=== PATIENT | female | born 1995 | race Caucasian/White ===

== ENCOUNTER 2017-10-21 11:33 | Emergency (ER) | payer BC ==
[~2017-10-21] VITALS: Ht 152.4 cm; Wt 50.2 kg
[2017-10-21 11:37] VITALS: TEMP 36.8; Ht 152.4 cm; Wt 50.2 kg
[2017-10-21 11:51] VITALS: O2SAT 100
[2017-10-21] MEDS ORDERED: LORAZEPAM 1 MG TAB SL STA (11:59)
[2017-10-21] MEDS ORDERED: SODIUM CHLORIDE 0.9% 1000ML 1,000 ML IV STA (11:59)
[2017-10-21] MEDS ORDERED: LEVALBUTEROL 1.25MG/3ML NEB INH STA (11:59)
[2017-10-21 12:13] LABS: BASO % 0.1 %; BASO ABS # 0.01 K/uL (0-0.2); EOS % 0.1 %; EOS ABS # 0.01 K/uL (0-0.5); HEMATOCRIT 42.1 % (37-47); HEMOGLOBIN 14.6 g/dL (12.0-16.0); IG# 0.02 K/uL (0.00-0.02); LYMPH % 19.2 %; LYMPH ABS # 2.32 K/uL (1.2-3.4); MEAN CELL VOLUME 87.2 fL (80-100); MEAN CORPUSCULAR HEMOGLOBIN 30.2 pg (25-34); MEAN CORPUSCULAR HGB CONC 34.7 g/dl (32-36); MEAN PLATELET VOLUME 9.2 fL (7.4-10.4); MONO % 5.5 %; MONO ABS # 0.67 K/uL (0.11-0.59); NEUT % 74.9 %; NEUT ABS # 9.05 K/uL (1.4-6.5); PLATELET COUNT 285 K/uL (130-400); RED CELL DISTRIBUTION WIDTH CV 12.1 % (11.5-14.5); RED CELL DISTRIBUTION WIDTH SD 38.6 fL (36.4-46.3); WHITE BLOOD COUNT 12.08 K/uL (4.8-10.8)
[2017-10-21 12:19] VITALS: PULSE 103; O2SAT 100
[2017-10-21 12:28] LABS: ALBUMIN 4.2 gm/dl (3.4-5.0); CALCIUM 9.6 mg/dl (8.5-10.1); CREATININE 0.81 mg/dl (0.60-1.20); POTASSIUM 3.5 mmol/L (3.5-5.1)
[2017-10-21 12:31] LABS: TOTAL PROTEIN 7.2 gm/dl (6.4-8.2)
--- NOTE | 2017-10-21 12:43 | DIAGNOSTIC IMAGING REPORT ---
CHEST ONE VIEW PORTABLE CLINICAL HISTORY: Pt c/o b/l wheezing dyspnea COMPARISON STUDY: 03/27/2011 FINDINGS: The bones soft tissues and hemidiaphragms are normal. The cardiomediastinal silhouette is normal. The lungs are clear. The pulmonary vasculature is normal. IMPRESSION: Negative chest. The above report was generated using voice recognition software. It may contain grammatical, syntax or spelling errors. Electronically signed by: Denny Palacios M.D. 10/21/2017 12:42 PM Dictated Date/Time: 10/21/2017 12:42 PM
--- NOTE | 2017-10-21 12:58 | DIAGNOSTIC IMAGING REPORT ---
KUB CLINICAL HISTORY: Generalized abdominal pain. FINDINGS: An AP, portable, supine abdominal radiograph is obtained. No prior studies are available for comparison at the time of dictation. There is a nonobstructed abdominal bowel gas pattern noting mild to moderate colonic fecal retention. No evidence of intraperitoneal free air is seen on this supine image. There are no abnormal abdominal calcifications. The bony structures appear intact. IMPRESSION: Nonobstructed abdominal bowel gas pattern. Electronically signed by: Luis Kumar M.D. 10/21/2017 12:57 PM Dictated Date/Time: 10/21/2017 12:56 PM
[2017-10-21 13:17] LABS: INFLUENZA B ANTIGEN Neg for Influ B (NEG)
[2017-10-21] MEDS ORDERED: ALBUTEROL 0.083% NEBU SOLN 3 ML VIAL INH STA (13:17)
[2017-10-21] MEDS ORDERED: ACETAMINOPHEN 500 MG TAB PO STA (13:17)
[2017-10-21] MEDS ORDERED: ALBUTEROL HFA 8 GM INHALER INH ONE (13:30)
[2017-10-21] MEDS ORDERED: OPTIRAY 320 IV PRN (13:45)
--- NOTE | 2017-10-21 14:17 | DIAGNOSTIC IMAGING REPORT ---
(CHEST FOR PE) ANGIO WITH CT DOSE: 159.24 mGy.cm HISTORY: Chest pain dyspnea TECHNIQUE: Multiaxial CT images of the chest were performed following the intravenous administration of contrast to evaluate the pulmonary arteries. Maximal intensity projection images were also obtained. A dose lowering technique was utilized adhering to the principles of ALARA. COMPARISON STUDY: None. FINDINGS: There is a normal caliber thoracic aorta with no evidence for dissection. There is no evidence for pulmonary embolus. No pleural effusions. No pneumothorax. The liver and spleen are unremarkable. No mediastinal or hilar lymphadenopathy. The central airways are patent. The lungs are clear. IMPRESSION: No evidence for pulmonary embolus. The lungs are clear. The above report was generated using voice recognition software. It may contain grammatical, syntax or spelling errors. Electronically signed by: Denny Palacios M.D. 10/21/2017 2:15 PM Dictated Date/Time: 10/21/2017 2:10 PM
[2017-10-21] MEDS ORDERED: DEXAMETHASONE INJ 10 MG in SYRINGE 0 ML IV STA (14:27)
[2017-10-21] MEDS ORDERED: PROCHLORPERAZINE 5 MG/ML 2 ML VIAL IV STA (14:27)
[2017-10-21] MEDS ORDERED: MAGNESIUM CITRATE 296 ML/BTL PO STA (14:27)
[2017-10-21] MEDS ORDERED: KETOROLAC TROMETHAMINE 30 MG/ML VIAL IV STA (14:27)
[2017-10-21] MEDS ORDERED: DiphenhydrAMINE HCL 50 MG/ML VIAL IV STA (14:27)
[2017-10-21] MEDS ORDERED: MAGNESIUM SULFATE 1GM / D5W 1 GM BAG IV STA (14:27)
[2017-10-21] MEDS ORDERED: CEFTRIAXONE SOD INJ 1 GM ADDVIAL IV STA (14:40)
[2017-10-21] MEDS ORDERED: DEXAMETHASONE **PF** INJ 10 MG/ML VIAL ONE (14:40)
[2017-10-21] MEDS ORDERED: BCPILLS PO (15:22)
[2017-10-21] MEDS ORDERED: CEPH500C2 PO (16:11)
--- NOTE | 2017-10-21 16:30 | EMERGENCY ROOM VISIT NOTE ---
History Report prepared by Freddy: Nery Acosta Under the Supervision of: Dr. Justin Rivera M.D. 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 The patient has been feeling sick with a sore throat since yesterday afternoon. This morning she had a fever. She started having trouble breathing on the way in. She has never experienced this before. She reports numbness in her hands and toes. She is having a headache in the front and intermittent abdominal pain. She has not had a bowel movement since yesterday which is normal for her. She notes that she has not been eating as much as normal. She denies any chest pain, nausea, vomiting, or diarrhea. She denies any drug or alcohol use. She is on control. Source of History: patient Onset: PYROMETER TEMPERATURE REGULATOR Position: other (breathing) Quality: other (difficulty) Timing: other (persistent) Associated Symptoms: + fevers, + headache, + sorethroat, + abdominal pain, + numbness, No chest pain, No nausea, No vomiting, No diarrhea Review of Systems See HPI for pertinent positives & negatives. A total of 10 systems reviewed and were otherwise negative. Past Medical & Surgical Medical Problems: (1) No chronic problems Family History No pertinent family history stated. Social History Smoking Status: Never Smoker Occupation Status: student Current/Historical Medications Scheduled Control Pills ( Control Pills), 1 TAB PO DAILY Cephalexin Monohydrate (Keflex), 500 MG PO TID Allergies Coded Allergies: NO KNOWN DRUG ALLERGIES (Verified Allergy, Mild, ., 06/08/16) Nickel (Unverified Allergy, Mild, RASH, 06/08/16) Physical Exam Vital Signs Date Time Temp Pulse Resp B/P (MAP) Pulse Ox O2 Delivery O2 Flow Rate FiO2 10/21/17 16:40 98 18 112/48 95 10/21/17 14:53 111 16 109/43 95 Room Air 10/21/17 12:50 113 22 114/73 100 Room Air 10/21/17 12:20 105 10/21/17 12:19 103 17 100 Room Air 10/21/17 11:51 100 Room Air 10/21/17 11:41 100 Room Air 10/21/17 11:37 36.8 115 30 136/82 100 Room Air Physical Exam GENERAL: Awake, alert, well-appearing, in no acute distress HENT: Normocephalic, atraumatic. Oropharynx unremarkable. EYES: Normal conjunctiva. Sclera non-icteric. NECK: Supple. No nuchal rigidity. FROM. No JVD. RESPIRATORY: Bilateral wheezing. CARDIAC: Regular rate, normal rhythm. Extremities warm and well perfused. Pulses equal. ABDOMEN: Soft, non-distended. No tenderness to palpation. No rebound or guarding. No masses. RECTAL: Deferred. MUSCULOSKELETAL: Chest examination reveals no tenderness. The back is symmetrical on inspection without obvious abnormality. There is no CVA tenderness to palpation. No joint edema. EXTREMITIES: Calves are equal size bilaterally and non-tender. No edema. No discoloration. Carpopedal spasms present. NEURO: Normal sensorium. No sensory or motor deficits noted. SKIN: No rash or jaundice noted. Medical Decision & Procedures ER Provider Diagnostic Interpretation: X-ray results as stated below per interpretation by me and the radiologist. Radiology results as stated below per my review and radiologist interpretation: CHEST ONE VIEW PORTABLE CLINICAL HISTORY: Pt c/o b/l wheezing dyspnea COMPARISON STUDY: 03/27/2011 FINDINGS: The bones soft tissues and hemidiaphragms are normal. The cardiomediastinal silhouette is normal. The lungs are clear. The pulmonary vasculature is normal. IMPRESSION: Negative chest. The above report was generated using voice recognition software. It may contain grammatical, syntax or spelling errors. Electronically signed by: Denny Palacios M.D. 10/21/2017 12:42 PM Dictated Date/Time: 10/21/2017 12:42 PM KUB CLINICAL HISTORY: Generalized abdominal pain. FINDINGS: An AP, portable, supine abdominal radiograph is obtained. No prior studies are available for comparison at the time of dictation. There is a nonobstructed abdominal bowel gas pattern noting mild to moderate colonic fecal retention. No evidence of intraperitoneal free air is seen on this supine image. There are no abnormal abdominal calcifications. The bony structures appear intact. IMPRESSION: Nonobstructed abdominal bowel gas pattern. Electronically signed by: Luis Kumar M.D. 10/21/2017 12:57 PM Dictated Date/Time: 10/21/2017 12:56 PM (CHEST FOR PE) ANGIO WITH CT DOSE: 159.24 mGy.cm HISTORY: Chest pain dyspnea TECHNIQUE: Multiaxial CT images of the chest were performed following the intravenous administration of contrast to evaluate the pulmonary arteries. Maximal intensity projection images were also obtained. A dose lowering technique was utilized adhering to the principles of ALARA. COMPARISON STUDY: None. FINDINGS: There is a normal caliber thoracic aorta with no evidence for dissection. There is no evidence for pulmonary embolus. No pleural effusions. No pneumothorax. The liver and spleen are unremarkable. No mediastinal or hilar lymphadenopathy. The central airways are patent. The lungs are clear. IMPRESSION: No evidence for pulmonary embolus. The lungs are clear. The above report was generated using voice recognition software. It may contain grammatical, syntax or spelling errors. Electronically signed by: Denny Palacios M.D. 10/21/2017 2:15 PM Dictated Date/Time: 10/21/2017 2:10 PM Laboratory Results 10/21/17 11:50 Red Blood Count 4.83, Mean Corpuscular Volume 87.2, Mean Corpuscular Hemoglobin 30.2, Mean Corpuscular Hemoglobin Concent 34.7, Mean Platelet Volume 9.2, Neutrophils (%) (Auto) 74.9, Lymphocytes (%) (Auto) 19.2, Monocytes (%) (Auto) 5.5, Eosinophils (%) (Auto) 0.1, Basophils (%) (Auto) 0.1, Neutrophils # (Auto) 9.05, Lymphocytes # (Auto) 2.32, Monocytes # (Auto) 0.67, Eosinophils # (Auto) 0.01, Basophils # (Auto) 0.01 10/21/17 11:50 Test 10/21/17 11:50 10/21/17 12:10 10/21/17 13:25 10/21/17 14:12 White Blood Count 12.08 K/uL (4.8-10.8) Red Blood Count 4.83 M/uL (4.2-5.4) Hemoglobin 14.6 g/dL (12.0-16.0) Hematocrit 42.1 % (37-47) Mean Corpuscular Volume 87.2 fL (80-100) Mean Corpuscular Hemoglobin 30.2 pg (25-34) Mean Corpuscular Hemoglobin Concent 34.7 g/dl (32-36) Platelet Count 285 K/uL (130-400) Mean Platelet Volume 9.2 fL (7.4-10.4) Neutrophils (%) (Auto) 74.9 % Lymphocytes (%) (Auto) 19.2 % Monocytes (%) (Auto) 5.5 % Eosinophils (%) (Auto) 0.1 % Basophils (%) (Auto) 0.1 % Neutrophils # (Auto) 9.05 K/uL (1.4-6.5) Lymphocytes # (Auto) 2.32 K/uL (1.2-3.4) Monocytes # (Auto) 0.67 K/uL (0.11-0.59) Eosinophils # (Auto) 0.01 K/uL (0-0.5) Basophils # (Auto) 0.01 K/uL (0-0.2) RDW Standard Deviation 38.6 fL (36.4-46.3) RDW Coefficient of Variation 12.1 % (11.5-14.5) Immature Granulocyte % (Auto) 0.2 % Immature Granulocyte # (Auto) 0.02 K/uL (0.00-0.02) Anion Gap 12.0 mmol/L (3-11) Est Creatinine Clear Calc Drug Dose 78.9 ml/min Estimated GFR () 120.3 Estimated GFR (Non- 103.8 BUN/Creatinine Ratio 15.9 (10-20) Calcium Level 9.6 mg/dl (8.5-10.1) Total Bilirubin 1.3 mg/dl (0.2-1) Aspartate Amino Transf (AST/SGOT) 17 U/L (15-37) Alanine Aminotransferase (ALT/SGPT) 21 U/L (12-78) Alkaline Phosphatase 49 U/L (45-117) Total Protein 7.2 gm/dl (6.4-8.2) Albumin 4.2 gm/dl (3.4-5.0) Globulin 3.0 gm/dl (2.5-4.0) Albumin/Globulin Ratio 1.4 (0.9-2) Human Chorionic Gonadotropin, Qual NEG (NEG) Monoscreen NEG (NEG) Influenza Type A Antigen Neg for Influ A (NEG) Influenza Type B Antigen Neg for Influ B (NEG) Bedside D-Dimer > 450 ng/mlFEU (0-450) Urine Color YELLOW Urine Appearance CLOUDY (CLEAR) Urine pH 5.5 (4.5-7.5) Urine Specific [place] 1.023 (1.000-1.030) Urine Protein NEG (NEG) Urine Glucose (UA) NEG (NEG) Urine Ketones 3+ (NEG) Urine Occult Blood NEG (NEG) Urine Nitrite NEG (NEG) Urine Bilirubin NEG (NEG) Urine Urobilinogen NEG (NEG) Urine Leukocyte Esterase MODERATE (NEG) Urine WBC (Auto) 10-30 /hpf (0-5) Urine RBC (Auto) 0-4 /hpf (0-4) Urine Hyaline Casts (Auto) 1-5 /lpf (0-5) Urine Epithelial Cells (Auto) >30 /lpf (0-5) Urine Bacteria (Auto) 2+ (NEG) Labs reviewed by ED physician. Medications Administered Medications (Trade) Dose Ordered Sig/Katy Route Start Time Stop Time Status Last Admin Dose Admin Levalbuterol (Xopenex 1.25MG/ 3ML Neb) 1.25 mg NOW STAT INH 10/21/17 11:59 10/21/17 12:03 DC 10/21/17 12:18 1.25 MG Lorazepam (Ativan Tab) 1 mg NOW STAT SL 10/21/17 11:59 10/21/17 12:03 DC 10/21/17 12:07 1 MG Sodium Chloride 1,000 ml @ 999 mls/hr Q1H1M STAT IV 10/21/17 11:59 10/21/17 12:59 DC 10/21/17 12:07 999 MLS/HR Acetaminophen (Tylenol Tab) 1,000 mg NOW STAT PO 10/21/17 13:17 10/21/17 13:19 DC 10/21/17 13:25 1,000 MG Albuterol (Ventolin Hfa Inhaler) 2 puffs NOW ONCE INH 10/21/17 13:30 10/21/17 13:31 DC 10/21/17 13:25 2 PUFFS Albuterol Sulfate (Ventolin 0.083% 2.5MG/3ML Neb) 2.5 mg NOW STAT INH 10/21/17 13:17 10/21/17 13:19 DC 10/21/17 13:25 2.5 MG Ketorolac Tromethamine (Toradol Inj) 30 mg NOW STAT IV 10/21/17 14:27 10/21/17 14:30 DC 10/21/17 14:43 30 MG Prochlorperazine Edisylate (Compazine Inj) 5 mg NOW STAT IV 10/21/17 14:27 10/21/17 14:30 DC 10/21/17 14:44 5 MG Diphenhydramine HCl (Benadryl Inj) 50 mg NOW STAT IV 10/21/17 14:27 10/21/17 14:30 DC 10/21/17 14:44 50 MG Magnesium Sulfate (Magnesium Sulfate) 1 gm NOW STAT IV 10/21/17 14:27 10/21/17 14:30 DC 10/21/17 14:43 1 GM Magnesium Citrate (Citrate Of Magnesia Soln) 296 ml NOW STAT PO 10/21/17 14:27 10/21/17 14:30 DC 10/21/17 14:27 296 ML Dexamethasone Sodium Phosphate (Dexamethasone Inj Pf) 10 mg STK-MED ONCE .ROUTE 10/21/17 14:40 10/21/17 14:41 DC 10/21/17 14:44 10 MG Ceftriaxone Sodium (Rocephin Inj) 1 gm NOW STAT IV 10/21/17 14:40 10/21/17 14:42 DC 10/21/17 15:28 1 GM ECG Per My Interpretation Indication: SOB/dyspnea Rate (beats per minute): 106 Rhythm: sinus tachycardia Findings: other (no ST elevation or depression, normal axis) ED Course 1155: Past medical records reviewed. The patient was evaluated in room A8. A complete history and physical examination was performed. 1159: NSS 1000 ml @ 999 mls/hr IV, Lorazepam 1 mg SL, Levalbuterol 1.25 mg INH. 1317: Albuterol Sulfate 2.5 mg INH, Acetaminophen 1000 mg PO. 1330: Albuterol 2 puffs INH. 1425: I reevaluated the patient. She is now complaining of the worse headache of her life. I recommended LP and discussed the risks and benefits. She is currently refusing LP and is requesting a migraine cocktail. 1427: Magnesium Citrate 296 ml PO, Magnesium Sulfate 1 gm IV, Benadryl Inj 50 mg IV, Compazine Inj 5 mg IV, Toradol Inj 30 mg IV. 1440: Rocephin Inj 1 gm IV, Dexamethasone Sodium Phosphate 10 mg IV. 1608: Upon reexamination the patient is resting comfortably. I discussed results and treatment plan with the patient. She verbalizes agreement and understanding. The patient is ready for discharge. Medical Decision Differential diagnosis: Etiologies such as infections, reactive airway disease, pneumonia, pneumothorax , COPD, CHF, cardiac ischemia, pulmonary embolism, musculoskeletal, gastrointestinal, as well as others were entertained. This is a 22-year-old female who presents emergency department with a number of complaints with her father and is complaining of being unable to breathe. She has bilateral carpopedal spasms. I reassured the patient and she was given Ativan here. She appears to be wheezing on examination therefore was given Xopenex. Chest x-ray the patient is on blood. Patient is concerned about this and using shared medical decision making with father and using the elevated d-dimer, the patient was sent for a CAT scan of the chest. This did not show any acute process. This point the patient was not complaining of headache. However now she is complaining of severe headache. Using shared medical decision making I recommended a lumbar puncture however the patient does not feel that her headache is not bad. She does not have any evidence of meningitis or encephalitis on examination but I will know she does have an elevation in her white blood cell count. She does appear to have a urinary tract infection therefore she was started on Rocephin given Toradol, Compazine, Benadryl, Decadron. She was given an albuterol inhaler for home. Repeat examination revealed much improvement in the patient's symptoms. I will continue the patient on Keflex pending urine culture results. Patient was in agreement with the treatment plan. Medication Reconcilliation Current Medication List: was personally reviewed by me Blood Pressure Screening Patient's blood pressure: Normal blood pressure Blood pressure disposition: Did not require urgent referral Impression Primary Impression: Bronchitis Additional Impressions: Headache UTI (urinary tract infection) Hyperventilation Scribe Attestation The scribe's documentation has been prepared under my direction and personally reviewed by me in its entirety. I confirm that the note above accurately reflects all work, treatment, procedures, and medical decision making performed by me. Departure Information Dispostion Home / Self-Care Prescriptions Cephalexin Monohydrate (KEFLEX) 500 Mg Cap 500 MG PO TID for 7 Days, #21 CAP Prov: Justin Rivera MD 10/21/17 Referrals No Doctor, Assigned (PCP) Forms HOME CARE DOCUMENTATION FORM, IMPORTANT VISIT INFORMATION, WORK / SCHOOL INSTRUCTIONS Patient Instructions ED Bronchitis Asthmatic, ED UTI Cystitis Female, Headache Pain, My [facility] Additional Instructions Use inhaler twice every 6 hours Return for LP if having severe head/neck pain/fevers Take 1/2 bottle of Mag Citrate Repeat second half in six hours You have been examined and treated today on an emergency basis only. This is not a substitute for, or an effort to provide, complete comprehensive medical care. It is impossible to recognize and treat all injuries or illnesses in a single emergency department visit. It is therefore important that you follow up closely with Your PCP. Call as soon as possible for an appointment. Thank you for your time and consideration. I look forward to speaking with you again soon. Please don't hesitate to call us if you have any questions. Problem Qualifiers Additional Impressions: Headache Headache type: unspecified Headache chronicity pattern: unspecified pattern Intractability: not intractable Qualified Codes: R51 - Headache UTI (urinary tract infection) Urinary tract infection type: acute cystitis Hematuria presence: without hematuria Qualified Codes: N30.00 - Acute cystitis without hematuria
[2017-10-21 16:40] VITALS: BP 112/48; PULSE 98; O2SAT 95
--- NOTE | 2017-10-21 17:19 | Pharmacy Progress Note ---
ED Pharmacist Progress Note Date of Service: Oct 21, 2017. Received call that the [facility] pharmacy on [address] was unexpectedly closed and the prescription for kelfex was requested to be sent to [facility] pharmacy in [place]. I subsequently called in the same prescription to this pharmacy and left a voicemail for [facility] to cancel the original prescription. Discussed with Dr. Rivera, the prescribing provider.
[2017-10-22 12:43] LABS: EBV EARLY ANTIGEN AB < 9.00 U/ML
== END 2017-10-21 16:50 | disposition home or self-care (01) ==
LOC: C.EDB 11:36 → C.EDA 16:50
DX: J40 Bronchitis, not specified as acute or chronic (principal); R51 Headache; N30.00 Acute cystitis without hematuria; R06.4 Hyperventilation; R20.0 Anesthesia of skin; Z79.3 Long term (current) use of hormonal contraceptives; Z91.048 Other nonmedicinal substance allergy status

== ENCOUNTER 2017-10-23 18:10 | Emergency (ER) | payer BC ==
[~2017-10-23 18:10] MED LIST: BCPILLS PO; CEPH500C2 PO
[2017-10-23] MEDS ORDERED: KETOROLAC TROMETHAMINE 30 MG/ML VIAL ONE (20:47)
[2017-10-23] MEDS ORDERED: PROCHLORPERAZINE 5 MG/ML 2 ML VIAL ONE (20:47)
[2017-10-23] MEDS ORDERED: DiphenhydrAMINE HCL 50 MG/ML VIAL ONE (20:47)
[2017-10-23 23:05] LABS: ALBUMIN 3.5 gm/dl (3.4-5.0); ALKALINE PHOSPHATASE 41 U/L (45-117); ALT/SGPT 20 U/L (12-78); AST/SGOT 13 U/L (15-37); BLOOD UREA NITROGEN 16 mg/dl (7-18); CARBON DIOXIDE 27 mmol/L (21-32); CREATININE 0.74 mg/dl (0.60-1.20); GLUCOSE 85 mg/dl (70-99); POTASSIUM 4.3 mmol/L (3.5-5.1); SODIUM 138 mmol/L (136-145); TOTAL PROTEIN 6.7 gm/dl (6.4-8.2)
[2017-10-23 23:09] LABS: BASO % 0.2 %; BASO ABS # 0.01 K/uL (0-0.2); EOS % 0.5 %; EOS ABS # 0.03 K/uL (0-0.5); HEMATOCRIT 38.3 % (37-47); HEMOGLOBIN 13.1 g/dL (12.0-16.0); IG# 0.01 K/uL (0.00-0.02); LYMPH % 39.4 %; LYMPH ABS # 2.28 K/uL (1.2-3.4); MEAN CELL VOLUME 88.7 fL (80-100); MEAN CORPUSCULAR HEMOGLOBIN 30.3 pg (25-34); MEAN CORPUSCULAR HGB CONC 34.2 g/dl (32-36); MEAN PLATELET VOLUME 8.9 fL (7.4-10.4); MONO % 6.2 %; MONO ABS # 0.36 K/uL (0.11-0.59); NEUT % 53.5 %; PLATELET COUNT 294 K/uL (130-400); RED CELL DISTRIBUTION WIDTH CV 12.3 % (11.5-14.5); RED CELL DISTRIBUTION WIDTH SD 39.7 fL (36.4-46.3); WHITE BLOOD COUNT 5.79 K/uL (4.8-10.8)
[2017-10-24 00:31] LABS: INFLUENZA B ANTIGEN Neg for Influ B (NEG)
--- NOTE | 2017-10-24 07:48 | DIAGNOSTIC IMAGING REPORT ---
CT SCAN OF THE BRAIN WITHOUT IV CONTRAST CLINICAL HISTORY: Headache. COMPARISON STUDY: No priors. TECHNIQUE: Unenhanced axial CT scan of the brain is performed from the vertex to the skull base. A dose lowering technique was utilized adhering to the principles of ALARA. FINDINGS: Brain parenchyma: The brain parenchyma is normal in appearance. There is no hemorrhage, mass effect, or evidence of acute territorial ischemia by CT criteria. Beard-white matter is preserved. No extra-axial fluid collection is seen. Ventricles, sulci, cisterns: Normal in configuration. Intracranial vasculature: The visualized intracranial vasculature at the skull base is normal in appearance. Calvarium: Unremarkable. Sinuses and mastoids: The visualized paranasal sinuses are clear. The mastoid air cells are well pneumatized. Orbits: The bony orbits are grossly intact. IMPRESSION: No acute intracranial abnormality. Electronically signed by: Luis Kumar M.D. 10/24/2017 7:47 AM Dictated Date/Time: 10/24/2017 7:46 AM
--- NOTE | 2017-11-01 14:43 | EMERGENCY ROOM VISIT NOTE ---
History Chief Complaint: HEADACHE Stated Complaint: HEADACHES,NAUSEA,NECK/BACK STIFF/ACHE History of Present Illness The patient is a 22 year old female who presents to the Emergency Room with complaints of ongoing headache for the last several days. The patient was seen in the emergency department 2 days ago with respiratory complaints and a headache. She is currently being treated with an antibiotic and an inhaler for bronchitis. The headache has been ongoing. She has tried Tylenol with minimal relief. She denies any photophobia. She does feel slightly nauseated. She denies any vomiting. Review of Systems 10 system review performed and negative unless noted in HPI or below Past Medical/Surgical History Medical Problems: (1) No chronic problems Social History Smoking Status: Never Smoker Occupation Status: student Current/Historical Medications Scheduled Control Pills ( Control Pills), 1 TAB PO DAILY Physical Exam Physical Exam VITALS: Vitals are noted on the nurse's note and reviewed by myself. Vital signs stable. GENERAL: 22-year-old female, mildly uncomfortable, SKIN: The skin was without rashes, erythema, edema, or bruising. HEAD: Normocephalic atraumatic. EARS: External auditory canals clear, tympanic membranes pearly robbins without erythema or effusion bilaterally. EYES: Pupils equal round and reactive to light and accommodation. Conjunctivae without injection, sclerae without icterus. Extraocular movements intact. MOUTH: Mucous membranes slightly dry tonsils are not enlarged. Pharynx without erythema or exudate. Uvula midline. Airway patent. Tongue does not deviate. NECK: Supple without nuchal rigidity. No lymphadenopathy. Cervical spine is nontender. No JVD. HEART: Regular rate and rhythm without murmurs gallops or rubs. LUNGS: Clear to auscultation bilaterally without wheezes, rales or rhonchi. No accessory muscle use. ABDOMEN: Positive bowel sounds x 4.Soft, nontender, without organomegaly. No guarding or rebound tenderness. MUSCULOSKELETAL: No muscle atrophy, erythema, or edema noted. Strength 5/5 throughout. NEURO: Patient was alert and oriented to person place and time. Cerebellar function intact. Cranial nerves grossly intact. Normal sensation to touch. No focal neurological deficits. Medical Decision & Procedures ER Provider Diagnostic Interpretation: CT head without contrast IMPRESSION: No acute intracranial abnormality. Electronically signed by: Luis Kumar M.D. 10/24/2017 7:47 AM Dictated Date/Time: 10/24/2017 7:46 AM The status of this report is Signed. Draft = Not yet reviewed or approved by Radiologist. Signed = Reviewed and approved by Radiologist. Laboratory Results 10/23/17 00:00 Red Blood Count 4.32, Mean Corpuscular Volume 88.7, Mean Corpuscular Hemoglobin 30.3, Mean Corpuscular Hemoglobin Concent 34.2, Mean Platelet Volume 8.9, Neutrophils (%) (Auto) 53.5, Lymphocytes (%) (Auto) 39.4, Monocytes (%) (Auto) 6.2, Eosinophils (%) (Auto) 0.5, Basophils (%) (Auto) 0.2, Neutrophils # (Auto) 3.10, Lymphocytes # (Auto) 2.28, Monocytes # (Auto) 0.36, Eosinophils # (Auto) 0.03, Basophils # (Auto) 0.01 10/23/17 00:00 Test 10/23/17 00:00 White Blood Count 5.79 K/uL (4.8-10.8) Red Blood Count 4.32 M/uL (4.2-5.4) Hemoglobin 13.1 g/dL (12.0-16.0) Hematocrit 38.3 % (37-47) Mean Corpuscular Volume 88.7 fL (80-100) Mean Corpuscular Hemoglobin 30.3 pg (25-34) Mean Corpuscular Hemoglobin Concent 34.2 g/dl (32-36) Platelet Count 294 K/uL (130-400) Mean Platelet Volume 8.9 fL (7.4-10.4) Neutrophils (%) (Auto) 53.5 % Lymphocytes (%) (Auto) 39.4 % Monocytes (%) (Auto) 6.2 % Eosinophils (%) (Auto) 0.5 % Basophils (%) (Auto) 0.2 % Neutrophils # (Auto) 3.10 K/uL (1.4-6.5) Lymphocytes # (Auto) 2.28 K/uL (1.2-3.4) Monocytes # (Auto) 0.36 K/uL (0.11-0.59) Eosinophils # (Auto) 0.03 K/uL (0-0.5) Basophils # (Auto) 0.01 K/uL (0-0.2) RDW Standard Deviation 39.7 fL (36.4-46.3) RDW Coefficient of Variation 12.3 % (11.5-14.5) Immature Granulocyte % (Auto) 0.2 % Immature Granulocyte # (Auto) 0.01 K/uL (0.00-0.02) D-Dimer 240 ug/L FEU (0-500) Urine Color YELLOW Urine Appearance CLEAR (CLEAR) Urine pH 7.0 (4.5-7.5) Urine Specific May 1.018 (1.000-1.030) Urine Protein NEG (NEG) Urine Glucose (UA) NEG (NEG) Urine Ketones NEG (NEG) Urine Occult Blood NEG (NEG) Urine Nitrite NEG (NEG) Urine Bilirubin NEG (NEG) Urine Urobilinogen NEG (NEG) Urine Leukocyte Esterase SMALL (NEG) Urine RBC 0-4 /hpf (0-4) Urine WBC 1-5 /hpf (0-5) Urine Epithelial Cells >30 /lpf (0-5) Urine Bacteria 1+ (NEG) Urine Hyaline Casts 1-5 /lpf (0-5) Urine Test NEG (NEG) Anion Gap 4.0 mmol/L (3-11) Estimated GFR () 134.2 Estimated GFR (Non- 115.8 BUN/Creatinine Ratio 21.1 (10-20) Calcium Level 9.0 mg/dl (8.5-10.1) Total Bilirubin 0.3 mg/dl (0.2-1) Aspartate Amino Transf (AST/SGOT) 13 U/L (15-37) Alanine Aminotransferase (ALT/SGPT) 20 U/L (12-78) Alkaline Phosphatase 41 U/L (45-117) Total Protein 6.7 gm/dl (6.4-8.2) Albumin 3.5 gm/dl (3.4-5.0) Globulin 3.2 gm/dl (2.5-4.0) Albumin/Globulin Ratio 1.1 (0.9-2) Influenza Type A Antigen Neg for Influ A (NEG) Influenza Type B Antigen Neg for Influ B (NEG) ED Course Patient was seen and examined Vital signs including blood pressure were reviewed medications list was verified with patient Labs were obtained, and a saline lock was established The patient was medicated with Toradol, Benadryl, Compazine and hydrated with normal saline. Upon reevaluation, the patient said that her headache was slightly better. I offered her more pain medication such as Tylenol. She declined. We thoroughly reviewed her workup. She and her mother voiced understanding. The patient was also seen and examined by my supervising physician who is in agreement with my plan. I reviewed discharge instructions the patient. They voiced understanding and had no further questions. Medical Decision Differential includes: Migraine headache, cluster headache, tension headache, acute intracranial bleed, trauma, meningitis, encephalitis, increased intracranial pressure, mass or mass effect, facial or dental infection, CVA, TIA , acute hypertensive emergency, sinusitis, carbon monoxide exposure. This patient is a 22-year-old female that returns to the emergency department complaining of an ongoing headache after being seen here 2 days ago in the emergency department. She is currently being treated for bronchitis. Her respiratory symptoms have somewhat improved. The patient had an extensive workup performed 2 days ago. On exam, she did not have any nuchal rigidity. No signs of meningitis. She was afebrile. The patient was treated with Toradol , Compazine, Benadryl and fluids. Her workup reveals no leukocytosis. Influenza was negative. CT the head is negative. This is likely a headache secondary to her illness. The patient was offered a lumbar puncture. She declined. I believe this is reasonable. She will continue her current medications as prescribed for bronchitis. The patient was given the name of a neurologist for follow-up if the headache persists. She was advised to stay well-hydrated. She will have close follow-up with her primary care physician. She and her mother agreed to return to the emergency department with worsening symptoms. Impression Primary Impression: Headache Departure Information Dispostion Home / Self-Care Referrals No Doctor, Assigned (PCP) Forms HOME CARE DOCUMENTATION FORM, IMPORTANT VISIT INFORMATION Patient Instructions My [facility]
== END 2017-10-23 20:52 | disposition home or self-care (01) ==
LOC: C.EDB 18:10
DX: R51 Headache (principal); Z79.3 Long term (current) use of hormonal contraceptives